=== PATIENT | male | born 1990 | race Caucasian/White ===

== ENCOUNTER 2024-08-27 14:51 | Emergency (ER) | payer BC ==
[~2024-08-27] VITALS: Ht 177.8 cm; Wt 98.5 kg
[2024-08-27] MEDS ORDERED: SODIUM CHLORIDE 0.9% 1,000 ML IV ONE (15:40)
[2024-08-27] MEDS ORDERED: Ketorolac Tromethamine 15 MG/ML VIAL IV ONE (15:45)
[2024-08-27 16:07] LABS: BASO # 0.1 10*3/uL (0.0-0.1); BASO % 0.6 % (0.0-1.0); EOS % 0.1 % (1.0-4.0); HEMATOCRIT 45.6 % (42.0-52.0); MEAN CELL VOLUME 85.7 fl (80.0-94.0); MEAN CORPUSCULAR HGB 29.1 pg (27.0-31.0); MEAN PLATELET VOLUME 8.8 fl (9.6-12.3); MONO % 6.6 % (3.0-9.0); NEUT # 12.5 10*3/uL (2.3-7.9); NEUT % 82.1 % (47.0-73.0); PLATELET COUNT AUTOMATED 237 10*3/uL (130-400); RED BLOOD COUNT 5.32 10*6/uL (4.50-5.90); WHITE BLOOD COUNT 15.3 10*3/uL (4.8-10.8)
[2024-08-27] MEDS ORDERED: ACETAMINOPHEN 325 MG TAB PO ONE (16:35)
[2024-08-27 16:46] LABS: ALKALINE PHOSPHATASE 105 U/L (46-116); BUN 13 mg/dl (9-23); CHLORIDE 104 mmol/L (98-107); POTASSIUM 3.8 mmol/L (3.4-5.1); SGPT/ALT 28 U/L (5-49); TOTAL PROTEIN 7.8 gm/dL (6.0-8.0)
[2024-08-27] MEDS ORDERED: Amoxicillin/Clavulanate Pota 875 MG TAB PO ONE (19:00)
[2024-08-27] MEDS ORDERED: AMOX-CLAV 875-1 EACH PO (19:00)
== END 2024-08-27 19:06 | disposition home or self-care (01) ==
LOC: ED 14:51
PROVIDERS: Nurse Practitioner Family
DX: J02.0 Streptococcal pharyngitis (principal); Z20.822 Contact with and (suspected) exposure to COVID-19

== ENCOUNTER 2025-04-09 10:43 | Emergency (ER) | payer BC ==
[~2025-04-09] VITALS: Ht 177.8 cm; Wt 98.9 kg
[~2025-04-09 10:43] MED LIST: AMOX-CLAV 875-1 EACH PO
[2025-04-09] MEDS ORDERED: SODIUM CHLORIDE 0.9% 1,000 ML IV ONE (11:05)
[2025-04-09] MEDS ORDERED: Ondansetron Hydrochloride 4 MG/2 ML VIAL IV ONE (11:05)
[2025-04-09] MEDS ORDERED: IOHEXOL 300 MG/ML 100 ML VIAL IV ONE (11:10)
[2025-04-09] MEDS ORDERED: IOHEXOL 300 MG/ML 100 ML VIAL ONE (11:35)
[2025-04-09] MEDS ORDERED: PERCOCET 5-3251 EACH PO (12:34)
== END 2025-04-09 12:48 | disposition home or self-care (01) ==
LOC: ED 10:43
DX: S93.401A Sprain of unspecified ligament of right ankle, initial encounter (principal); R07.89 Other chest pain; V86.55XA Driver of 3- or 4- wheeled all-terrain vehicle (ATV) injured in nontraffic accident, initial encounter; Y93.89 Activity, other specified; Y92.89 Other specified places as the place of occurrence of the external cause; Y99.8 Other external cause status